=== PATIENT | male | born 1985 | race Hispanic/Latino ===

== ENCOUNTER 2021-01-14 22:51 | Emergency (ER) | payer SELFPAY ==
[2021-01-14] MEDS ORDERED: BABY ASPIRIN 81 MG CHEW PO ONE (22:58)
[2021-01-14] MEDS ORDERED: MORPHINE SULFATE 2 MG INJ IV ONE (22:58)
[2021-01-14] MEDS ORDERED: Sodium Chloride 0.9% 1000 ML 1,000 ML IV SCH (23:00)
[2021-01-14] MEDS ORDERED: Sodium Chloride 0.9% 1000 ML 1,000 ML ONE (23:04)
[2021-01-14] MEDS ORDERED: MORPHINE SULFATE 2 MG INJ ONE (23:04)
[2021-01-14 23:18] LABS: Absolute Neutrophil Ct (ANC) 3.72 (1.4-6.9); BASOPHIL % 0.1 % (0.0-0.4); Basophil (Absolute #) 0.01 (0-0.4); Eosinophil % 0.9 % (0.00-5.0); Eosinophil (Absolute #) 0.06 (0-0.5); Hematocrit 46.9 % (42-50); Hemoglobin 16.3 gm/dl (12.5-18.0); Lymphocytes % 34.5 % (24.0-44.0); Mean Cell Volume 85.4 fl (78-100); Mean Corpuscular Hemoglobin 29.7 pg (26-32); Mean Corpuscular Hgb Concent. 34.8 g/dl (32-36); Mean Platelet Volume 10.3 fl (7.5-11.0); Monocyte (Absolute #) 0.58 (0.0-1.3); Monocytes % 8.7 % (0.0-12.0); Neutrophil % 55.8 % (36.0-66.0); Platelet Count 261 K/mm3 (150-450); Red Blood Count 5.49 M/mm3 (4.1-5.6); Red Cell Distribution Width 13.3 % (11.5-14.0); White Blood Count 6.7 K/mm3 (4.0-10.5)
[2021-01-14 23:26] LABS: INR 1.03 (0.8-3.0); PROTIME 12.1 SECONDS (9.4-12.5)
[2021-01-14 23:39] LABS: ALBUMIN 4.7 g/dL (3.5-5.0); ALKALINE PHOSPHATASE 113 U/L (38-126); ANION GAP 16.7 MEQ/L (5-15); BLOOD UREA NITROGEN 22 mg/dL (9-20); CHLORIDE 102 mmol/L (98-107); Calcium 9.6 mg/dL (8.4-10.2); Carbon Dioxide 24 mmol/L (22-30); Creatinine 1 1.12 mg/dL (0.66-1.25); D-DIMER QUANTITATIVE < 215 ng/mL (215-500); EST GLOMERULAR FILTRATION RATE > 60.0 ML/MIN; Glucose 136 mg/dL (74-106); NT PRO BNP < 11.5 pg/mL (0-450); Potassium 3.4 mmol/L (3.5-5.1); SGOT/AST 27 U/L (17-59); SGPT/ALT 22 U/L (0-50); SODIUM 139 mmol/L (137-145); Total Protein 7.5 g/dL (6.3-8.2)
[2021-01-15 01:23] VITALS: BP 130/87
--- NOTE | 2021-01-15 01:51 | ERPHSYRPT ---
- History of Present Illness Time Seen by Provider: 01/14/21 23:10 Historian: patient Exam Limitations: language barrier Patient Subjective Stated Complaint: Patient's brother at bedside due and speaks guamanian. Patient does not speak guamanian. Patient c/o chest pain. Triage Nursing Assessment: Brother states chest pain has been intermittent for the past 8 days. Pain was worse earlier today but is currently a little better at #5 on 0-10 scale. No SOB at time. Physician History: Patient is a 35-year-old male who presents with an 8-day history of intermittent left-sided chest pain. This is associated with some shortness of breath but no nausea vomiting or diaphoresis he is generally a pretty healthy male the pain is worse at night and associated with palpitations he does not have pain during the day when he is working. At night he rates the pain 5 of 10. Timing/Duration: day(s) (8), intermittent Activities at Onset: rest, sleep Quality: throbbing Location: other (Left anterior chest) Chest Pain Radiation: no radiation Severity of Pain-Max: moderate Severity of Pain-Current: moderate Modifying Factors: Improves With: nothing Associated Symptoms: shortness of breath Nitro Today/Relief: no nitro taken today Aspirin Treatment Today: no aspirin today Allergies/Adverse Reactions: No Known Drug Allergies Allergy (Unverified 01/14/21 23:06) Travel Risk - International Travel Have you traveled outside of the country in past 3 weeks: No - Coronavirus Screening Are you exhibiting any of the following symptoms?: No Close contact with a COVID-19 positive Pt in past 14-21 Days: No - Vaccine Status Have you recieved a Covid-19 vaccination: No - Review of Systems Constitutional: No Fever, No Chills Eyes: No Symptoms Ears, Nose, & Throat: No Symptoms Respiratory: No Cough, No Dyspnea Cardiac: Chest Pain, No Edema, No Syncope Abdominal/Gastrointestinal: No Abdominal Pain, No Nausea, No Vomiting, No Diarrhea Genitourinary Symptoms: No Dysuria Musculoskeletal: No Back Pain, No Neck Pain Skin: No Rash Neurological: No Dizziness, No Focal Weakness, No Sensory Changes Psychological: No Symptoms Endocrine: No Symptoms All Other Systems: Reviewed and Negative - Past Medical History Pertinent Past Medical History: No Other Medical History: Poor historian - Past Surgical History Past Surgical History: Yes Neuro Surgical History: No Pertinent History Cardiac: No Pertinent History Respiratory: No Pertinent History Gastrointestinal: Hernia Repair Genitourinary: No Pertinent History Musculoskeletal: No Pertinent History Male Surgical History: No Pertinent History - Social History Smoking Status: Never smoker Exposure to second hand smoke: No Drug Use: none - Nursing Vital Signs Nursing Vital Signs: Initial Vital Signs Temperature 98.5 F 01/14/21 22:53 Pulse Rate 84 01/14/21 22:53 Respiratory Rate 18 01/14/21 22:53 Blood Pressure 158/92 01/14/21 22:53 O2 Sat by Pulse Oximetry 99 01/14/21 22:53 Pain Scale Pain Intensity 0 - Physical Exam General Appearance: mild distress, alert Eye Exam: PERRL/EOMI, eyes nml inspection Ears, Nose, Throat Exam: normal ENT inspection, moist mucous membranes Neck Exam: normal inspection, non-tender, supple, full range of motion Respiratory Exam: normal breath sounds, lungs clear, No respiratory distress Cardiovascular Exam: regular rate/rhythm, normal heart sounds Gastrointestinal/Abdomen Exam: soft, No tenderness, No mass Back Exam: normal inspection, No CVA tenderness, No vertebral tenderness Extremity Exam: normal inspection, normal range of motion Neurologic Exam: alert, oriented x 3, cooperative, normal mood/affect, sensation nml, No motor deficits Skin Exam: normal color, warm, dry SpO2: 98 - Course Nursing assessment & vital signs reviewed: Yes EKG Interpreted by Me: RATE (84), 1st degree AV Block, Right Bundle Branch Block, Non-specific ST Changes - Radiology Exams Chest X-ray Interpretation: Interpreted by me, Negative Ordered Tests: Active Orders 24 hr Category Date Time Status Grazing Aide STAT Care 01/14/21 22:58 Active EKG-ER Only STAT Care 01/14/21 22:58 Active IV Insertion STAT Care 01/14/21 22:58 Active CHEST 1 VIEW (PORTABLE) Stat Exams 01/14/21 22:58 Taken CBC W DIFF Stat Lab 01/14/21 23:14 Completed CMP Stat Lab 01/14/21 23:14 Completed D-DIMER QUANTITATIVE Stat Lab 01/14/21 23:14 Completed NT PRO BNP Stat Lab 01/14/21 23:14 Completed PROTIME WITH INR Stat Lab 01/14/21 23:14 Completed TROPONIN Q3H Lab 01/14/21 23:14 Completed TROPONIN Q3H Lab 01/15/21 01:23 Completed TROPONIN Q3H Lab 01/15/21 05:00 Ordered TROPONIN Q3H Lab 01/15/21 08:00 Ordered TROPONIN Q3H Lab 01/15/21 11:00 Ordered Medication Summary Generic Name Dose Route Start Last Admin Trade Name Castillo PRN Reason Stop Dose Admin Sodium Chloride 1,000 mls @ 100 mls/hr 01/14/21 23:00 01/14/21 23:08 Sodium Chloride 0.9% 1000 Ml IV 02/13/21 22:59 100 mls/hr .Q10H CANDY Administration Discontinued Medications Generic Name Dose Route Start Last Admin Trade Name Castillo PRN Reason Stop Dose Admin Aspirin 324 mg 01/14/21 22:58 01/14/21 23:09 Baby Aspirin 81 Mg Chew PO 01/14/21 22:59 324 mg STAT ONE Administration Morphine Sulfate 2 mg 01/14/21 22:58 01/14/21 23:09 Morphine Sulfate 2 Mg Inj IV 01/14/21 22:59 2 mg STAT ONE Administration Morphine Sulfate Confirm 01/14/21 23:04 Morphine Sulfate 2 Mg Inj Administered 01/14/21 23:05 Dose 2 mg .ROUTE .flck.me ONE Lab/Rad Data: Laboratory Result Diagrams 01/14/21 23:14 01/14/21 23:14 Laboratory Results 01/15/21 01/14/21 01/14/21 Range/Units 01:23 23:14 23:14 WBC (4.0-10.5) K/mm3 RBC (4.1-5.6) M/mm3 Hgb (12.5-18.0) gm/dl Hct (42-50) % MCV (78-100) fl MCH (26-32) pg MCHC (32-36) g/dl RDW (11.5-14.0) % Plt Count (150-450) K/mm3 MPV (7.5-11.0) fl Gran % (36.0-66.0) % Eos # (Auto) (0-0.5) Absolute Lymphs (auto) (1.0-4.6) Absolute Monos (auto) (0.0-1.3) Lymphocytes % (24.0-44.0) % Monocytes % (0.0-12.0) % Eosinophils % (0.00-5.0) % Basophils % (0.0-0.4) % Absolute Granulocytes (1.4-6.9) Basophils # (0-0.4) PT 12.1 (9.4-12.5) SECONDS INR 1.03 (0.8-3.0) D-Dimer < 215 L (215-500) ng/mL Sodium (137-145) mmol/L Potassium (3.5-5.1) mmol/L Chloride (98-107) mmol/L Carbon Dioxide (22-30) mmol/L Anion Gap (5-15) MEQ/L BUN (9-20) mg/dL Creatinine (0.66-1.25) mg/dL Estimated GFR ML/MIN Glucose (74-106) mg/dL Calcium (8.4-10.2) mg/dL Total Bilirubin (0.2-1.3) mg/dL AST (17-59) U/L ALT (0-50) U/L Alkaline Phosphatase (38-126) U/L Troponin I < 0.012 < 0.012 (0.000-0.034) ng/mL NT-Pro-B Natriuret Pep (0-450) pg/mL Serum Total Protein (6.3-8.2) g/dL Albumin (3.5-5.0) g/dL 01/14/21 01/14/21 Range/Units 23:14 23:14 WBC 6.7 (4.0-10.5) K/mm3 RBC 5.49 (4.1-5.6) M/mm3 Hgb 16.3 (12.5-18.0) gm/dl Hct 46.9 (42-50) % MCV 85.4 (78-100) fl MCH 29.7 (26-32) pg MCHC 34.8 (32-36) g/dl RDW 13.3 (11.5-14.0) % Plt Count 261 (150-450) K/mm3 MPV 10.3 (7.5-11.0) fl Gran % 55.8 (36.0-66.0) % Eos # (Auto) 0.06 (0-0.5) Absolute Lymphs (auto) 2.30 (1.0-4.6) Absolute Monos (auto) 0.58 (0.0-1.3) Lymphocytes % 34.5 (24.0-44.0) % Monocytes % 8.7 (0.0-12.0) % Eosinophils % 0.9 (0.00-5.0) % Basophils % 0.1 (0.0-0.4) % Absolute Granulocytes 3.72 (1.4-6.9) Basophils # 0.01 (0-0.4) PT (9.4-12.5) SECONDS INR (0.8-3.0) D-Dimer (215-500) ng/mL Sodium 139 (137-145) mmol/L Potassium 3.4 L (3.5-5.1) mmol/L Chloride 102 (98-107) mmol/L Carbon Dioxide 24 (22-30) mmol/L Anion Gap 16.7 H (5-15) MEQ/L BUN 22 H (9-20) mg/dL Creatinine 1.12 (0.66-1.25) mg/dL Estimated GFR > 60.0 ML/MIN Glucose 136 H (74-106) mg/dL Calcium 9.6 (8.4-10.2) mg/dL Total Bilirubin 0.30 (0.2-1.3) mg/dL AST 27 (17-59) U/L ALT 22 (0-50) U/L Alkaline Phosphatase 113 (38-126) U/L Troponin I (0.000-0.034) ng/mL NT-Pro-B Natriuret Pep < 11.5 (0-450) pg/mL Serum Total Protein 7.5 (6.3-8.2) g/dL Albumin 4.7 (3.5-5.0) g/dL - Progress Progress: improved Air Movement: good Blood Culture(s) Obtained: No Antibiotics given: No - Departure Departure Disposition: Home Clinical Impression: Chest pain due to GERD Condition: Stable Critical Care Time: No Referrals: DOCTOR,NO FAMILY [Primary Care Provider] - Instructions: Chest Pain (DC) Prescriptions: PANTOPRAZOLE 40 mg Tablet [Protonix 40MG Tablet] 40 mg PO DAILY 30 Days #30 tab
[2021-01-15 02:04] VITALS: PULSE 65; O2SAT 99
--- NOTE | 2021-01-15 08:56 | XRAY ---
Indication: Chest pain. Comparison: None Portable chest demonstrates normal heart, lungs, and bony thorax with a few incidental tiny calcified granulomas.
== END 2021-01-15 02:19 | disposition home or self-care (01) ==
LOC: ED 22:51
DX: R07.9 Chest pain, unspecified (principal); K21.9 Gastro-esophageal reflux disease without esophagitis
CPT/HCPCS: 36000; 36415; 71045; 80053; 83880; 84484; 85025; 85379; 85610; 93005; 93041; 96374; 96375; 99284; J2270; A9270-GY